=== PATIENT | male | born 1965 | race Caucasian/White ===

== ENCOUNTER 2020-12-04 09:53 | Emergency (ER) | payer OTHER ==
[~2020-12-04] VITALS: Ht 177.8 cm; Wt 86.0 kg
--- NOTE | 2020-12-04 10:24 | NUR ---
PT TO ROOM FROM [facility]. ASSUMED CARE OF PT AT THIS TIME.
[2020-12-04] MEDS ORDERED: ONDANSETRON 2MG/ML, 2ML ONE (10:45)
[2020-12-04] MEDS ORDERED: LORazepam 2 MG/ML, 1ML IVPush PRN (11:00)
[2020-12-04] MEDS ORDERED: PANTOPRAZOLE 40 MG IV IVPush ONE (11:00)
[2020-12-04] MEDS ORDERED: FAMOTIDINE 20 MG/2 ML IVPush ONE (11:00)
[2020-12-04] MEDS ORDERED: ONDANSETRON 2MG/ML, 2ML IVPush ONE (11:00)
[2020-12-04] MEDS ORDERED: FAMOTIDINE 20 MG/2 ML ONE (11:06)
[2020-12-04] MEDS ORDERED: PANTOPRAZOLE 40 MG IV ONE (11:06)
[2020-12-04] MEDS ORDERED: LORazepam 2 MG/ML, 1ML ONE (11:06)
[2020-12-04 11:21] LABS: BASOPHILS % (AUTO) 1 % (0-1); EOSINOPHILS % (AUTO) 2 % (1-7); LYMPHOCYTES % (AUTO) 12 % (22-44); MEAN CORPUSCULAR HEMOGLOBIN 30.4 pg (27.5-34.5); MEAN CORPUSCULAR HGB CONC 33.4 g/dL (33.2-36.2); MEAN PLATELET VOLUME 8.4 fL (7.4-10.4); MONOCYTES % (AUTO) 11 % (2-9); NEUTROPHILS % (AUTO) 74 % (42-75); PLATELET COUNT 120 x10^3/uL (130-400); RED BLOOD COUNT 4.52 x10^6/uL (4.38-5.82); RED CELL DISTRIBUTION WIDTH 18.4 % (9.4-14.8)
[2020-12-04 11:26] LABS: ALANINE AMINOTRANSFERASE 35 U/L (12-78); ALBUMIN 3.3 g/dL (3.4-5.0); ANION GAP 11 mmol/L (5-15); CALCIUM 8.4 mg/dL (8.5-10.1); CHLORIDE 107 mmol/L (98-107)
[2020-12-04 11:28] LABS: INTERNATIONAL NORMALIZED RATIO 1.28 (0.93-1.1); PROTHROMBIN TIME 13.5 Seconds (9.6-11.5)
[2020-12-04 11:29] LABS: ALKALINE PHOSPHATASE 150 U/L (45-117); TOTAL PROTEIN 8.3 g/dL (6.4-8.2)
[2020-12-04] MEDS ORDERED: THIAMINE 100 MG in SODIUM CHLORIDE 0.9% 50 ML IVPB ONE (12:00)
[2020-12-04 12:11] VITALS: BP 128/89
--- NOTE | 2020-12-04 12:14 | NUR ---
PT RESTING IN POSITION OF COMFORT IN [facility]. N/V HAS RESOLVED AFTER IV MEDICATION. PT HAS CALL LIGHT W/IN REACH. DENIES NEEDS. CHART UP FOR RECHECK. VSS.
== END 2020-12-04 13:27 | disposition home or self-care (01) ==
LOC: ED 13:10
DX: K92.0 Hematemesis (principal); J02.9 Acute pharyngitis, unspecified; R94.31 Abnormal electrocardiogram [ECG] [EKG]; F17.200 Nicotine dependence, unspecified, uncomplicated
CPT/HCPCS: 36415; 80053; 83605; 83690; 85025; 85610; 85730; 86850; 86900; 93005; 96365; 96375; 99284; C9113; J2060; J2405; J3411